=== PATIENT | male | born 1990 | race Two or more races ===

== ENCOUNTER 2019-04-19 13:39 | Emergency (ER) | payer MEDICAID ==
[~2019-04-19] VITALS: Ht 172.7 cm; Wt 95.3 kg
[2019-04-19 14:45] VITALS: BP 137/88
== END 2019-04-19 15:14 | disposition home or self-care (01) ==
LOC: ER 13:43
DX: T16.2XXA Foreign body in left ear, initial encounter (principal); F12.10 Cannabis abuse, uncomplicated; F17.210 Nicotine dependence, cigarettes, uncomplicated; X58.XXXA Exposure to other specified factors, initial encounter; Y93.89 Activity, other specified; Y92.89 Other specified places as the place of occurrence of the external cause; Y99.8 Other external cause status

== ENCOUNTER 2019-04-24 10:26 | Emergency (ER) | payer MEDICAID ==
[~2019-04-24] VITALS: Ht 172.7 cm; Wt 97.5 kg
[2019-04-24 10:33] VITALS: BP 132/86
[2019-04-24] MEDS ORDERED: ONDANSETRON ODT 4 MG TAB PO ONE (12:00)
[2019-04-24] MEDS ORDERED: FAMOTIDINE 20 MG TAB PO ONE (12:00)
== END 2019-04-24 12:04 | disposition home or self-care (01) ==
LOC: ER 10:26
DX: K29.70 Gastritis, unspecified, without bleeding (principal); F12.10 Cannabis abuse, uncomplicated
CPT/HCPCS: 99283; Q0162

== ENCOUNTER 2019-05-26 10:39 | Emergency (ER) | payer MEDICAID ==
[~2019-05-26] VITALS: Ht 172.7 cm; Wt 95.3 kg
[2019-05-26 11:54] VITALS: BP 136/89
[2019-05-26] MEDS ORDERED: cefTRIAXone SOD 1,000 MG VL IM ONE (13:45)
== END 2019-05-26 14:00 | disposition home or self-care (01) ==
LOC: ER 10:39
DX: S81.811A Laceration without foreign body, right lower leg, initial encounter (principal); F12.90 Cannabis use, unspecified, uncomplicated; W26.0XXA Contact with knife, initial encounter; Y99.8 Other external cause status; Y93.89 Activity, other specified; Y92.89 Other specified places as the place of occurrence of the external cause
CPT/HCPCS: 12002; 96372; 99283; J0696

== ENCOUNTER 2019-09-15 09:20 | Emergency (ER) | payer MEDICAID ==
[~2019-09-15] VITALS: Ht 172.7 cm; Wt 97.5 kg
[2019-09-15 09:38] VITALS: BP 145/88
== END 2019-09-15 10:30 | disposition home or self-care (01) ==
LOC: ER 09:20
DX: J06.9 Acute upper respiratory infection, unspecified (principal); J02.9 Acute pharyngitis, unspecified; R51 Headache

== ENCOUNTER 2019-09-18 10:54 | Emergency (ER) | payer MEDICAID ==
[~2019-09-18] VITALS: Ht 172.7 cm; Wt 97.5 kg
[2019-09-18 11:55] VITALS: BP 136/96
== END 2019-09-18 12:04 | disposition home or self-care (01) ==
LOC: ER 10:54
DX: J02.9 Acute pharyngitis, unspecified (principal)

== ENCOUNTER 2020-06-29 10:15 | Emergency (ER) | payer MEDICAID ==
[~2020-06-29] VITALS: Ht 172.7 cm; Wt 99.8 kg
[2020-06-29 12:20] VITALS: BP 142/98
== END 2020-06-29 12:26 | disposition home or self-care (01) ==
LOC: ER 10:15
DX: M79.671 Pain in right foot (principal); F12.10 Cannabis abuse, uncomplicated
CPT/HCPCS: 73630

== ENCOUNTER 2025-03-31 02:25 | Emergency (ER) | payer MEDICAID, OTHER ==
[~2025-03-31] VITALS: Ht 172.7 cm; Wt 111.4 kg
--- NOTE | 2025-03-31 02:38 | ED.PDOC ---
Back pain HPI HPI Comments PT C/O 06/19 BACK PAIN TO LOWER BACK. PT EXPLAINS THAT SHE HAS HAD MULTIPLE SURGERIES ON HER BACK AND HAS CHRONIC BACK PAIN. PT HAS BEEN UNABLE TO SET UP AN APPOINTMENT WITH PAIN MANAGEMENT AND THIS MORNING HER PAIN HAS BECOME UNBEARABLE. PT A&OX4, VSS, RR EVEN AND UNLABORED ON RA. Time Seen by MD: 02:27 Primary Care Provider: UNKNOWN Reviewed Notes: Nurses Notes, Medications, Allergies Allergies: Coded Allergies: NO KNOWN ALLERGIES (Unverified , 04/19/19) Information Source: Patient Past Medical History PAST MEDICAL HISTORY: Denies Surgical History: Denies all surgeries Family History Family History: Reviewed,noncontributory to illness Social History Smoker: Non-Smoker Alcohol: Occasionally Drugs: Marijuana Lives In: Home Constitutional: denies: chills, diaphoresis, fatigue, fever, malaise, sweats, weakness, others EENTM: denies: blurred vision, double vision, ear bleeding, ear discharge, ear drainage, ear pain, ear ringing, eye pain, eye redness, hearing loss, mouth pain, mouth swelling, nasal discharge, nose bleeding, nose congestion, nose pain, photophobia, tearing, throat pain, throat swelling, voice changes, others Respiratory: denies: cough, hemoptysis, orthopnea, SOB at rest, shortness of breath, SOB with excertion, stridor, wheezing, others Cardiovascular: denies: chest pain, dizzy spells, diaphoresis, Dyspnea on exertion, edema, irregular heart beat, left arm pain, lightheadedness, palpitations, PND, syncope, others Gastrointestinal: denies: abdomen distended, abdominal pain, blood streaked bowels, constipated, diarrhea, dysphagia, difficulty swallowing, hematemesis, melena, nausea, poor appetite, poor fluid intake, rectal bleeding, rectal pain, vomiting, others Genitourinary: denies: burning, dysuria, flank pain, frequency, hematuria, incontinence, penile discharge, penile sore, pain, testicle pain, testicle swelling, urgency, others Neurological: denies: dizziness, fainting, headache, left sided numbness, left sided weakness, numbness, paresthesia, pre-existing deficit, right sided n umbness, right sided weakness, seizure, speech problems, tingling, tremors, weakness, others Musculoskeletal: reports: joint pain, joint swelling; denies: back pain, gout, muscle pain, muscle stiffness, neck pain, others Integumetry: denies: bruises, change in color, change in hair/nails, dryness, laceration, lesions, lumps, rash, wounds, others Allergic/Immunocompromised: denies: Difficulty Healing, Frequent Infections, Hives, Itching, others Hematologic/Lymphatic: denies: anemia, blood clots, easy bleeding, easy bruising, swollen glands, others Endocrine: denies: excessive hunger, excessive sweating, excessive thirst, excessive urination, flushing, intolerance to cold, intolerance to heat, unexplained weight gain, unexplained weight loss, others Psychiatric: denies: anxiety, bipolar disorder, depression, hopeless, panic disorder, schizophrenia, sleepless, suicidal, others Physical Exam General Appearance: No Apparent Distress, Normal HEENT: Pharynx Normal Neck: Full Range of Motion, Non-Tender Respiratory: Lungs Clear, No Respiratory Distress, Normal Breath Sounds Cardiovascular: No Murmur, Normal Peripheral Pulses, Regular Rate/Rhythm Breast Exam: Deferred Gastrointestinal: Non Tender, Soft Genitalia: Deferred Pelvic: Deferred Rectal: Deferred Extremities: Normal capillary refill, Normal range of motion, Non-tender, No pedal edema Musculoskeletal : Location: Left Extremity Location: Knee (NEGATIVE YAZMIN'S, BALLOTTEMENT, AND DRAWER TEST. TENDERNESS PALPATED OVER LATERAL ASPECT OF KNEE. STRENGTH SENSORY MOTION INTACT. NO GROSS OBVIOUS EXTERNAL TRAUMA NOTED. POSITIVE PEDAL PULSE POSITIVE POPLITEAL PULSE) Apperance: Normal Neurologic: Alert, No Motor Deficits, Normal Affect, Normal Mood, No Sensory Deficits Cerebellar Function: Normal Reflexes: Normal Skin: Dry, Normal Color, Warm Lymphatic: No Adenopathy Was a procedure done? Was a procedure done?: No Back Pain Differential Dx Differential Diagnosis: Fracture, Musculoskeletal Pain X-Ray, Labs, Meds, VS Vital Signs Date Time Temp Pulse Resp B/P (MAP) Pulse Ox O2 Delivery O2 Flow Rate FiO2 03/31/25 02:25 97.5 72 18 137/98 (111) 98 97.5 Current Medications Medications (Trade) Dose Ordered Sig/Violette Route Start Time Stop Time Status Last Admin Ketorolac Tromethamine (Toradol Injection) 60 mg ONCE ONCE IM 03/31/25 02:45 03/31/25 02:46 DC 03/31/25 02:45 X-Ray, Labs, Meds, VS Comment X-RAY SHOWS NO ACUTE FRACTURES DISLOCATIONS OR OSSEOUS LESIONS. LIKELY KNEE CONTUSION. ADVISED ON RICE. [id number] TYLENOL OR MOTRIN NEEDED FOR THE PAIN PER LABELED DOSING INSTRUCTIONS. FOLLOW UP WITH [facility]. ADVISED ON ER RETURN PRECAUTIONS PATIENT INDICATES UNDERSTANDING AGREES WITH DISCHARGE PLAN OF CARE. Time of 1ST Reevaluation: 02:34 Reevaluation 1ST: Unchanged Time of 2ND Reevaluation: 03:44 Reevaluation 2ND: Improved Patient Education/Counseling: Diagnosis, Treatment, Prognosis, Need For Follow Up Family Education/Counseling: No Family Present SEPSIS Sepsis Screen Physician Orders L Knee 3v Xray (03/31/25 02:39) Vital Signs Date Time Temp Pulse Resp B/P (MAP) Pulse Ox O2 Delivery O2 Flow Rate FiO2 03/31/25 02:25 97.5 72 18 137/98 (111) 98 97.5 Medications Medications Dose Ordered Sig/Violette Route Start Time Stop Time Status Last Admin Dose Admin Ketorolac Tromethamine 60 mg ONCE ONCE IM 03/31/25 02:45 03/31/25 02:46 DC 03/31/25 02:45 Departure 1 Departure Time of Disposition: 03:42 Impression: Primary Impression: Knee contusion Qualified Codes: S80.02XA - Contusion of left knee, initial encounter Disposition: 01 HOME / SELF CARE / HOMELESS Condition: Stable Discharged With: Self Critical Care Note Critical Care Time?: No Stability Stability form required: QUINCY Gillespie Mar 31, 2025 02:38
[2025-03-31] MEDS: KETOROLAC TROMETH 60MG/2ML VIAL IM ONE (02:45)
--- NOTE | 2025-03-31 03:08 | DVH ---
CLINICAL INDICATION: INJURY/PAIN TECHNIQUE: XY L KNEE 3V XRAY Comparison: None FINDINGS/IMPRESSION: : There is no evidence of acute fracture or dislocation. Soft tissues are unremarkable.
[2025-03-31 04:00] VITALS: PULSE 72; RESP 18; O2SAT 98
[2025-03-31 04:04] VITALS: BP 137/98; PULSE 72; RESP 18; TEMP 97.5; O2SAT 98
== END 2025-03-31 04:00 | disposition home or self-care (01) ==
LOC: ER 02:25
DX: S80.02XA Contusion of left knee, initial encounter (principal); G89.29 Other chronic pain; X58.XXXA Exposure to other specified factors, initial encounter; Y93.89 Activity, other specified; Y92.89 Other specified places as the place of occurrence of the external cause; Y99.8 Other external cause status
CPT/HCPCS: 73562; 96372; 99283; J1885